=== PATIENT | female | born 1975 | race Caucasian/White ===

== ENCOUNTER 2016-09-28 06:15 | Day surgery (SDC) | payer MEDICAID ==
[2016-09-26 12:43] LABS: HEMATOCRIT 40.6 % (36.0-47.0); HEMOGLOBIN 13.2 g/dL (12.0-15.5); MEAN CORPUSCULAR HEMOGLOBIN 26.2 pg (27.0-33.4); MEAN CORPUSCULAR HGB CONC 32.7 g/dL (32.0-36.0); MEAN CORPUSCULAR VOLUME 80 fl (80-97); RED BLOOD COUNT 5.06 10^6/uL (3.72-5.28); RED CELL DISTRIBUTION WIDTH 13.6 % (11.5-14.0)
[2016-09-26 13:00] LABS: APPEARANCE,URINE SLIGHTLY-CLOUDY; BILIRUBIN,URINE NEGATIVE (NEGATIVE); GLUCOSE, URINE NEGATIVE (NEGATIVE); KETONES,URINE NEGATIVE (NEGATIVE); LEUKOCYTE ESTERASE,URINE TRACE (NEGATIVE); NITRITE,URINE NEGATIVE (NEGATIVE); PROTEIN,URINE NEGATIVE (NEGATIVE); URINE SPECIFIC GRAVITY 1.031; UROBILINOGEN,URINE NEGATIVE mg/dL (<2.0)
[2016-09-26 13:04] LABS: ANION GAP 14 (5-19); BLOOD UREA NITROGEN 12 mg/dL (7-20); CALCIUM 10.1 mg/dL (8.4-10.2); CARBON DIOXIDE 21 mmol/L (22-30); CHLORIDE 107 mmol/L (98-107); CREATININE RESULT 0.62 mg/dL (0.52-1.25); GLUCOSE 97 mg/dL (75-110); POTASSIUM 4.5 mmol/L (3.6-5.0); SODIUM 142.2 mmol/L (137-145)
[~2016-09-28 06:15] MED LIST: CEFAZOLIN 1 GM/D5W RTU 1 GM/50 ML RTUPB IV PRN; LACTATED RINGERS 1000 ML IV PRN; LIDOCAINE 0.5% INJ-PF (5 MG/ML) 50 ML SDV SUBCUT PRN; SCOPOLAMINE HYDROBROMIDE 1.5 MG PATCH.TD72 ONE
[2016-09-28] MEDS ORDERED: LIDOCAINE 1%/EPINEPHRINE INJ 20 ML VIAL ONE (07:16)
[2016-09-28] MEDS ORDERED: MIDAZOLAM 2 MG/2 ML INJ ONE (08:23)
[2016-09-28] MEDS ORDERED: FENTANYL CITRATE INJ/PF 100 MCG/2 ML AMPUL ONE (08:23)
[2016-09-28] MEDS ORDERED: KETAMINE HCL INJ 500 MG/10 ML VIAL ONE (08:24)
[2016-09-28] MEDS ORDERED: PROPOFOL INJ 200 MG/20 ML VIAL IV ONE (08:24)
[2016-09-28] MEDS ORDERED: FENTANYL CITRATE INJ/PF 100 MCG/2 ML AMPUL IV PRN ×3 (08:51)
[2016-09-28] MEDS ORDERED: MORPHINE SULFATE 10 MG/ML INJ IV PRN (08:51)
[2016-09-28] MEDS ORDERED: PROMETHAZINE HCL INJ 25 MG/1 ML VIAL IV PRN ×2 (08:51)
[2016-09-28] MEDS ORDERED: DIPHENHYDRAMINE HCL 50 MG/ML VIAL IV PRN (08:51)
[2016-09-28] MEDS ORDERED: MEPERIDINE HCL/PF INJ 25 MG/1 ML DISP.SYRIN IV PRN (08:51)
[2016-09-28] MEDS ORDERED: OXYCODONE-ACETAMINOPHEN 5-325 MG TABLET PO PRN ×3 (08:51→10:00)
[2016-09-28] MEDS ORDERED: MEPERIDINE HCL/PF INJ 25 MG/1 ML DISP.SYRIN ONE (09:22)
--- NOTE | 2016-09-28 09:39 | OPERATIVE REPORT E ---
Operative Report NAME: EVA PATEL : 1975 AGE: 41Y DATE OF SURGERY: 09/28/2016 ROOM: PREOPERATIVE DIAGNOSES: 1. Vulvar lesion. 2. Buttock lesion. POSTOPERATIVE DIAGNOSES: 1. Vulvar lesion. 2. Buttock lesion. PROCEDURE: Wide local excision of vulvar lesion and biopsy of left buttock. ESTIMATED BLOOD LOSS: 15 mL. COMPLICATIONS: None. ANESTHESIA: LMAC and local 1% lidocaine with epinephrine. SURGEON: HOOD NAVARRETE M.D. INDICATIONS FOR PROCEDURE: The patient had a symptomatic right vulvar lesion apparently measured approximately 3 x 2 x 2 cm upon first evaluation. Clinically, it was found in the subcu area. No lymphadenopathy was noted preop visits. The usual risks of bleeding, infection, anesthesia, and damage to organs and tissues were discussed and the patient understood. DESCRIPTION OF PROCEDURE: The patient was taken to the operating room and placed in the modified lithotomy position and adequate anesthesia ascertained. Surgical timeout performed, antibiotics given, EUA done. Normal abdominal contents and palpation. No adenopathy noted. A local injection at the area of concern was performed after Betadine was used for prep. Wide local incision of the area was performed uneventfully and handed off the operative field. *------* was encountered. Buttock area was excised as well. The layers were sewn in multilayered fashion using a 2-0 chromic catgut subcu in lower levels in multilayered fashion and subcu with 3-0 Vicryl. At completion of procedure, all sponge and needle counts were correct. The patient was taken to recovery room in stable condition. DICTATING PHYSICIAN: HOOD NAVARRETE M.D. [id number] PHY#: [id number] ID: [id number] JOB#: [id number] ACCT: [id number] cc:HOOD NAVARRETE M.D. >
[2016-09-28] MEDS ORDERED: ONDANSETRON HCL INJ/PF 4 MG/2 ML SDV ONE (09:50)
[2016-09-28] MEDS ORDERED: DEXAMETHASONE SOD PHOSPHATE INJ 4 MG/1 ML VIAL ONE (09:50)
[2016-09-28] MEDS ORDERED: PROMETHAZINE HCL INJ 25 MG/1 ML VIAL IM PRN (10:00)
[2016-09-28 12:11] VITALS: BP 117/67
[2016-09-28] MEDS ORDERED: IBUPROFEN 800 MG TABLET PO SCH (14:00)
== END 2016-09-28 11:10 | disposition home or self-care (01) ==
LOC: OROUT 06:15
PROVIDERS: ATTEND Specialist
PROC: 0UBMXZZ Excision of Vulva, External Approach (ICD-10-PCS; 2016-09-28)
PROC: 0HQ8XZZ Repair Buttock Skin, External Approach (ICD-10-PCS; 2016-09-28)
PROC: 0HB8XZX Excision of Buttock Skin, External Approach, Diagnostic (ICD-10-PCS; 2016-09-28)
PROC: 0HQAXZZ Repair Inguinal Skin, External Approach (ICD-10-PCS; principal; 2016-09-28 08:15)
DX: D28.0 Benign neoplasm of vulva (principal); D23.5 Other benign neoplasm of skin of trunk; Q85.00 Neurofibromatosis, unspecified; I49.9 Cardiac arrhythmia, unspecified; J45.909 Unspecified asthma, uncomplicated
CPT/HCPCS: 36415; 85027; 81025; 80048; 81001; 88305 ×2; 11426; 12044; J2250; J0690; J1100; J3010; J3490 ×3; J2175; J2405; J2704; 940

== ENCOUNTER 2016-11-18 23:31 | Emergency (ER) | payer MEDICAID ==
[2016-11-19] MEDS ORDERED: GLUCAGON,HUMAN RECOMB 1 MG INJ IV ONE (00:54)
--- NOTE | 2016-11-19 01:05 | ER Document Report ---
ED General - General Chief Complaint: Foreign Body Stated Complaint: BLOCKAGE IN THROAT Time Seen by Provider: 11/19/16 00:44 Notes: Patient is a 41-year-old female presents for complaint of food stuck in her soft expiratory gastric and 6 PM. She repeats and chicken. She has been unable to handle secretions or liquids since then. She did have a upper GI endoscopy in March. At that time she had scarring from reflux. This is performed by Dr. Kim. She was told that if she has recurrence of difficulty swallowing she may need ballooning of her esophagus. She denies any blood in her emesis.. She denies any difficulty breathing or aspiration. No fevers. No other complaints at this time. TRAVEL OUTSIDE OF THE [place] IN LAST 30 DAYS: No - Related Data Allergies/Adverse Reactions: milk [Milk] Allergy (Severe, Verified 09/26/16 11:09) Anaphylaxis bee stings Allergy (Uncoded 06/03/16 14:41) Past Medical History - Social History Smoking Status: Unknown if Ever Smoked Frequency of alcohol use: None Drug Abuse: None Family History: Reviewed & Not Pertinent - Past Medical History Cardiac Medical History: Denies: Hx Coronary Artery Disease, Hx Heart Attack, Hx Hypertension Pulmonary Medical History: Reports: Hx Asthma Denies: Hx Bronchitis, Hx COPD, Hx Pneumonia Neurological Medical History: Reports: Hx Migraine. Denies: Hx Cerebrovascular Accident, Hx Seizures Renal/ Medical History: Denies: Hx Peritoneal Dialysis GI Medical History: Reports: Hx Gastroesophageal Reflux Disease Musculoskeltal Medical History: Denies Hx Arthritis, Reports Hx Fibromyalgia Psychiatric Medical History: Reports: Hx Bipolar Disorder Past Surgical History: Reports: Hx Gynecologic Surgery - ovarian cyst removed, Hx Orthopedic Surgery - plate and screws in left pinky - Immunizations Hx Diphtheria, Pertussis, Tetanus Vaccination: Yes - <5 years Review of Systems - Review of Systems Notes: My Normal Review Basic REVIEW OF SYSTEMS: CONSTITUTIONAL : Denies fever, chills, or sweats. Denies recent illness. EENT: Denies eye, ear, throat, or mouth pain or symptoms. Denies nasal or sinus congestion. RESPIRATORY: Denies cough, cold, or chest congestion. Denies shortness of breath, difficulty breathing, or wheezing. GASTROINTESTINAL: Food impaction. MUSCULOSKELETAL: Denies neck or back pain or joint pain or swelling. SKIN: Denies rash or skin lesions. ALL OTHER SYSTEMS REVIEWED AND NEGATIVE. Physical Exam - Vital signs Vitals: Temp Pulse Resp BP Pulse Ox 99 F 85 16 133/89 H 97 11/19/16 00:16 11/19/16 00:16 11/19/16 00:16 11/19/16 00:16 11/19/16 00:16 - Notes Notes: General Appearance: Well nourished, alert, cooperative, no acute distress, moderate discomfort. Patient's spitting saliva into the back. Patient takes one small sip of water and immediately starts having difficulty swallowing and has to vomit. Vitals: reviewed, See vital signs table. Head: no swelling or tenderness to the head Eyes: PERRL, EOMI, Conjuctiva clear Mouth: No decreasd moisture Lungs: No wheezing, No rales, No rhonci, No accessory muscle use, good air exchange bilaterally. Heart: Normal rate, Regular rythm, No murmur, no rub Abdomen: Normal BS, soft, No rigidity, No abdominal tenderness, No guarding, no rebound, no abdominal masses, no organomegaly Skin: warm, dry, appropriate color, no rash Neuro: speech clear, oriented x 3, normal affect, responds appropriately to questions. Course - Re-evaluation Re-evalutation: 11/19/16 02:04 Patient still not able to pass the food bolus. I therefore tried to touch with GI physician. We do not junk call tonight. I did call [facility]. I spoke with Deborah Suarez who is the physician's residential living assistant covering for the GI coverage. [facility] called back and said that Dr. Charlton, the attending GI doctor, refuses to accept the patient because he said the patient is stable and that this is not emergent. - Vital Signs Vital signs: Temp Pulse Resp BP Pulse Ox 99 F 85 16 133/89 H 97 11/19/16 00:16 11/19/16 00:16 11/19/16 00:16 11/19/16 00:16 11/19/16 00:16 - Transfer of Care Notes: 11/19/16 02:26 Patient unfortunately was unable to pass the food impaction here. We did not have GI air export operations agent. I did eventually speak with Dr. Dickerson, GI physician at [facility], who kindly accepted the patient for transfer. Patient will be on ER to ER transfer to [facility]. I did talk to the patient about transfer options. I talked about a month's versus motor vehicle. She prefers to go by private vehicle. She says her son can drive her down there. She says she knows how to get to [facility]. Discharge - Discharge Clinical Impression: Food impaction of esophagus Qualifiers: Encounter type: initial encounter Qualified Code(s): T18.128A - Food in esophagus causing other injury, initial encounter Condition: Stable Disposition: [facility] Additional Instructions: Please go directly to the ER at [facility] in [place], [place]. Please present the paper work given to you to the ER front desk manager. You have been accepted by Dr. Dickerson for transfer. Please last puller and call 911 immediately if you have sudden severe chest pain or any vomiting of blood. Referrals: CASIE DAO MD [Primary Care Provider] - Follow up as needed
[2016-11-19] MEDS ORDERED: ONDANSETRON 4 MG TAB.RAPDIS PO ONE (01:51)
[2016-11-19 02:29] VITALS: BP 132/83
== END 2016-11-19 02:45 | disposition short-term general hospital (02) ==
LOC: ER 23:31
DX: T18.128A Food in esophagus causing other injury, initial encounter (principal); X58.XXXA Exposure to other specified factors, initial encounter; Y93.89 Activity, other specified; K21.9 Gastro-esophageal reflux disease without esophagitis; J45.909 Unspecified asthma, uncomplicated; Z91.011 Allergy to milk products; Z91.030 Bee allergy status
CPT/HCPCS: 99283; 96374; S0119; J1610

== ENCOUNTER 2016-11-19 08:44 | Emergency (ER) | payer MEDICAID ==
--- NOTE | 2016-11-19 08:54 | ER Document Report ---
ED Foreign Body - General Chief Complaint: Swallowed Foreign Body Stated Complaint: NAUSEA Time Seen by Provider: 11/19/16 08:53 Mode of Arrival: Ambulatory Information source: Patient Notes: 41-year-old female has persistent foreign body in her esophagus and is having to spit out her saliva and unable to swallow liquids. She is a history of stricture. She left the emergency department last night at 3:30 and was supposed to present to the blow off worker at [facility]. The patient was so tired she went home to sleep. She return to the emergency room today having seen Dr. kim in the past wanting this to be taken care of in [place] so she wouldn't have to drive to [facility]. I called Dr. Kim who is on-call for the emergency department and he spoke with Dr. Robison who will take care of this esophageal foreign body. TRAVEL OUTSIDE OF THE [place] IN LAST 30 DAYS: No - Related Data Allergies/Adverse Reactions: milk [Milk] Allergy (Severe, Verified 11/19/16 08:52) Anaphylaxis bee stings Allergy (Uncoded 11/19/16 08:52) Past Medical History - General Information source: Patient - Social History Smoking Status: Unknown if Ever Smoked Frequency of alcohol use: None Drug Abuse: None Lives with: Family Family History: Reviewed & Not Pertinent Pulmonary Medical History: Reports: Hx Asthma Neurological Medical History: Reports: Hx Migraine Renal/ Medical History: Denies: Hx Peritoneal Dialysis GI Medical History: Reports: Hx Gastroesophageal Reflux Disease, Other - Esophageal stricture Musculoskeltal Medical History: Reports Hx Fibromyalgia Psychiatric Medical History: Reports: Hx Bipolar Disorder Past Surgical History: Reports: Hx Gynecologic Surgery - ovarian cyst removed, Hx Orthopedic Surgery - plate and screws in left pinky - Immunizations Hx Diphtheria, Pertussis, Tetanus Vaccination: Yes - <5 years Review of Systems - Review of Systems Constitutional: No symptoms reported EENT: No symptoms reported Cardiovascular: No symptoms reported Respiratory: No symptoms reported Gastrointestinal: See HPI Genitourinary: No symptoms reported Female Genitourinary: No symptoms reported Musculoskeletal: No symptoms reported Skin: No symptoms reported Hematologic/Lymphatic: No symptoms reported Neurological/Psychological: No symptoms reported Physical Exam - Vital signs Vitals: Temp Pulse Resp BP Pulse Ox 98.9 F 73 18 111/67 98 11/19/16 08:51 11/19/16 08:51 11/19/16 08:51 11/19/16 08:51 11/19/16 08:51 Interpretation: Normal - General General appearance: Appears well, Alert In distress: None - HEENT Head: Normocephalic, Atraumatic Eyes: Normal Pupils: PERRL Pharynx: Normal Neck: Supple. No: Lymphadenopathy - Respiratory Respiratory status: No respiratory distress Chest status: Nontender Breath sounds: Normal Chest palpation: Normal - Cardiovascular Rhythm: Regular Heart sounds: Normal auscultation Murmur: No - Abdominal Inspection: Normal Distension: No distension Bowel sounds: Normal Tenderness: Nontender. No: Tender Organomegaly: No organomegaly - Back Back: Normal, Nontender - Extremities General upper extremity: Normal inspection, Nontender, Normal color, Normal ROM , Normal temperature General lower extremity: Normal inspection, Nontender, Normal color, Normal ROM , Normal temperature, Normal weight bearing. No: Judy's sign - Neurological Neuro grossly intact: Yes Cognition: Normal Orientation: AAOx4 [place] Coma Scale Eye Opening: Spontaneous Magan Coma Scale Verbal: Oriented Magan Coma Scale Motor: Obeys Commands [place] Coma Scale Total: 15 Speech: Normal Motor strength normal: LUE, RUE, LLE, RLE Sensory: Normal - Psychological Associated symptoms: Normal affect, Normal mood - Skin Skin Temperature: Warm Skin Moisture: Dry Skin Color: Normal Skin irregularity: negative: Rash Course - Vital Signs Vital signs: Temp Pulse Resp BP Pulse Ox 98.2 F 74 16 111/51 L 100 11/19/16 13:30 11/19/16 13:30 11/19/16 13:30 11/19/16 13:30 11/19/16 13:30 Discharge - Discharge Forms: Discharge POC-Adult Referrals: AMY AYALA MD [ACTIVE STAFF] - Follow up as needed
[2016-11-19] MEDS ORDERED: NORMAL SALINE 1000 ML 1,000 ML IV ONE ×2 (09:10→10:55)
[2016-11-19] MEDS ORDERED: ONDANSETRON HCL INJ/PF 4 MG/2 ML SDV IV ONE (09:11)
[2016-11-19] MEDS ORDERED: PROCHLORPERAZINE EDISYLATE INJ 10 MG/2 ML VIAL IV ONE (09:21)
[2016-11-19] MEDS ORDERED: DIPHENHYDRAMINE HCL 50 MG/ML VIAL IV ONE (09:21)
[2016-11-19] MEDS ORDERED: ONDANSETRON HCL INJ/PF 4 MG/2 ML SDV ONE (12:02)
[2016-11-19] MEDS ORDERED: NALOXONE HCL INJ/PF 0.4 MG/1 ML SDV ONE (12:02)
[2016-11-19] MEDS ORDERED: DIPHENHYDRAMINE HCL 50 MG/ML VIAL ONE (12:02)
[2016-11-19] MEDS ORDERED: FENTANYL CITRATE INJ/PF 100 MCG/2 ML AMPUL ONE (12:03)
[2016-11-19] MEDS ORDERED: FLUMAZENIL INJ 0.5 MG/5 ML VIAL IV ONE (12:03)
[2016-11-19] MEDS ORDERED: GLUCAGON,HUMAN RECOMB 1 MG INJ ONE (12:04)
[2016-11-19] MEDS ORDERED: EPINEPHRINE INJ 1 MG/10 ML DISP.SYRIN ONE (12:04)
[2016-11-19] MEDS: MIDAZOLAM 2 MG/2 ML INJ ONE ×2 (12:20→12:24)
[2016-11-19 13:33] VITALS: BP 111/51
--- NOTE | 2016-11-19 14:05 | Operative Report ---
Operative Report DATE OF SURGERY: 11/19/16 Operative Report: The risks benefits and alternatives of the procedure explained to the patient in detail and informed consent is obtained . A GIF Olympus video scope was inserted into the patient's mouth and hypopharynx, the esophagus is identified intubated and insufflated, the scope was then advanced through the esophagus stomach and duodenum, retroflexion maneuver is done ,the esophagus stomach and first and second portions of the duodenum examined PREOPERATIVE DIAGNOSIS: Food bolus impaction. Dysphagia POSTOPERATIVE DIAGNOSIS: Eosinophilic esophagitis, patient has rings and furrows biopsies obtained. Gastritis status post biopsy rule out Helicobacter pylori. Food bolus removal OPERATION: EGD with foreign body removal. EGD with biopsy SURGEON: AMY AYALA ANESTHESIA: Moderate Sedation - 4 mg of Versed, 100 g of fentanyl. Conscious sedation monitoring time 30 minutes. TISSUE REMOVED OR ALTERED: Esophageal mucosal specimens obtained. Gastric mucosal specimens obtained COMPLICATIONS: None. ESTIMATED BLOOD LOSS: none. INTRAOPERATIVE FINDINGS: Food impaction in the distal esophagus. Esophageal rings and furrows. Gastritis PROCEDURE: Patient tolerated the procedure well. No immediate postprocedure complications are noted. Patient is discharged in good condition. Discharge date 11/19/2016. Discharge diet: Regular. Discharge activity: Regular. 2-3 week follow-up to discuss findings. Patient is instructed to call the office or proceed to the emergency room should there be any further problems or questions. We'll await on biopsies.
== END 2016-11-19 12:03 | disposition other institution (70) ==
LOC: ER 08:44
DX: T18.128A Food in esophagus causing other injury, initial encounter (principal); X58.XXXA Exposure to other specified factors, initial encounter; K21.9 Gastro-esophageal reflux disease without esophagitis; K22.2 Esophageal obstruction; Z91.011 Allergy to milk products; Z91.030 Bee allergy status
CPT/HCPCS: 99284; 96361; 96374; 96375; 43239; 43247; 88342 ×2; 88305 ×2; J2250; J1200; J3010; J0780; J2405; J7030; J0171; J1610; J2310; J3490

== ENCOUNTER → 2017-01-22 | Outpatient (CLI) | payer MEDICAID ==
--- NOTE | 2017-01-22 18:09 | RADIOLOGY REPORT (SQ) ---
EXAM DESCRIPTION: BOSTON SWALLOW COMPLETED DATE/TIME: 01/22/2017 8:32 am REASON FOR STUDY: DYSPHAGIA R13.10 DYSPHAGIA, UNSPECIFIED COMPARISON None. TECHNIQUE: Videofluoroscopic swallowing examination was performed in conjunction with speech patholo gy. Videofluoroscopic imaging was obtained and reviewed and these are the findings: RADIATION DOSE: 55 seconds of fluoroscopy was used. 1 images saved to PACS. LIMITATIONS: None FINDINGS: The patient was brought into the fluoro room and placed upright on a modified barium swall ow chair. The patient was then given multiple consistencies mixed with barium to swallow under live fluoroscopic video guidance. According to the Speech Pathologist there was no penetration or aspirat ion. IMPRESSION: NO EVIDENCE OF PENETRATION OR ASPIRATION.PLEASE SEE SPEECH PATHOLOGIST REPORT FOR OTHER FINDINGS AND RECOMMENDATIONS. COMMENT: Quality ID [id number]: Final reports for procedures using fluoroscopy that document radiation exp osure indices, or exposure time and number of fluorographic images (if radiation exposure indices are not available) TECHNICAL DOCUMENTATION: JOB ID: [id number] [employer]- All Rights Reserved
--- NOTE | 2017-01-22 18:21 | ST Modified Barium Swallow ---
Recommendation - Recommendations Recommendations: 1) DIET: mechanical soft solids with chopped tender, moist ( gravy added) meats and thin liquids. No foods with skins, nuts, crunchy crumbly textures. 2) ST in agreement with continued GI follow-up as pt reports recent event where chicken was "dislodged from esophagus.". 3) Alternate solids and liquids. SUMMARY: Pt presents with a WNL oral and pharyngeal swallow; no penetration or aspiration observed. No oral or pharyngeal residuals seen during MBSS. Pt provided with barium tablet as pt reported difficulty with medication. Barium pill observed to move from oral to pharyngeal phase without difficulty, RA reports WNL for esophageal phase. Pt reported globus sensation throughout evaluation, no pharyngeal or esophageal residuals observed. Alternating solids and liquids recommended as pt reports aides in reducing "sticking" sensation. Medical Diagnoses - Medical Diagnoses Medical Diagnosis Description & ICD-10 Code(s): r13.10 Other Medical Diagnoses/Co-Morbidities: gullbladder issues- per pt - ICD-10 Tx Diagnosis Coding (1) Dysphagia, unspecified ICD-10 Code(s): R13.10 - DYSPHAGIA, UNSPECIFIED ST Modified Barium Swallow - General Date: 01/22/17 Referring Physician: Dr Humphreys Risks/Precautions: None Date of Onset: 01/22/09 Reason for Referral: dysphagia - History History obtained from: Patient -: Medical - Pt reports referred by neurologist due to recent hospital admission at [facility]. Pt reports went the hospital due to food lodged. Pt states hospital referred her to [facility] for GI however pt states she did not go due to work commitments. Pt states began having issues breathing at work and was readmitted to [facility] hospital. There she states she had EGD completed and had "chicken dislodged from the esophagus". [facility] surgical notes reviewed by ST and state "poss EOE, gastritis, and foreign body removal." Pt reports her symptoms are coughing and choking with PO intake, globus sensation in mid to lower neck, difficulty with pills-pt states now taking liquid form, difficulty breathing, need to make herself "sick" in order to reduce sensation of "sticking". Pt reports unable to identify pattern of foods which cause difficulty however notes that "stretching and moving help". Pt states onset of symptoms began approximately 8 years ago and have become more frequent. Pt denies history of bronchitis or PNA. Medications: depakote, nexium, steriod inhaler, magdaleno, flonaze, patch for nausea-per pt Allergies: "milk" reported - Functional Status Prior Functional Status: INDEPENDENT: feeding Current Functional Limitations: feeding - Subjective Patient/caregiver goal(s): safe swallow, r/o aspiration Cognitive-Linguistic Function: WNL Speech Intelligibility: WNL Current Nutritional Means: PO Current PO diet: Regular Current symptoms: Coughing, c/o Globus sensation Pain: 0/5 - Objective Assessment: Upright, Left Lateral - Food Trials Used Food trials used: Thin liquids, Pureed, Regular The patient: Was Able to Self Feed - Oral-Motor Skills Dentition: Full Velo-pharyngeal function: Unremarkable Laryngeal Function: Volitional Cough, Volitional Swallow - Assessment Oral prep: Normal Labial closure: Adequate Leakage: None Mastication: Adequate Lingual Movement: Normal Oral stage: Normal for this Procedure - Pharyngeal Stage Initiation of Pharyngeal Stage Reflex: Normal Decreased laryngeal elevation: No Reduced Velopharyngeal Closure: no Reduced pressure generation: No reduced tongue-based retraction: No Pre-swallow pooling in valleculae: None Pre-Swallow pooling in pyriforms: None Reduced Thyro-Hyoid approximation: No Reduced epiglottic excursion: No Reduced pharyngeal peristalsis/contraction: No Post-swallow residulas vallecular: None Post-Swallow residuals in pyriforms: None Reduced Cricopharyngeal opening: No - Fall Risk Assessment Medications/Conditions that increase fall risks include: Antidepressants, sedatives, anti-arrhythmic, diuretic, benzodiazipenes, neuroleptics. BP regulation problems, cardiac problems, balance or gait deficits, neurological problems. Is patient considered at risk for falls: no Fall Risk Actions Taken: No action needed - Behavioral Observations During evaluation process patient: was pleasant, was cooperative, able to answer questions, provided medical history - Treatment / Educational Needs: Treatment/Education Needs: Treatment consisted of patient education on the role of the Speech Pathologist. Patient's plan of care and golas were communicated as well as scheduling and attendance policies. Recommendations for initial home program were shared. Patient demonstrated understanding and verbalized agreement. Initial home program recommendations: Pt provided with written and verbal education on recommendations and reflux precautions. - Impression/Summary Laryngeal Penetration: No Tracheal Aspiration: no Patient presents with: Normal swallow at eval - safe and effective swallow observed during MBSS Risk of Aspiration: Minimal - Recommendations NPO: no Solid diet recommendations: Mechanical Soft, Chopped Meat Liquid Diet Modification: Thin Pt/Family education and followup with MD: Yes Dysphagia therapy with SANDBLASTER GLASS: no Recommended techniques: Fully Upright During Meal, Small Bites and Sips, Alternate Bites/Sips Supervision: Distant Information, Precautions and Recommendations: Patient (Written), Patient (Verbal ) - Time Total Time: 30 - Plan of Care Strategies to optimize patient understanding include:: ongoing assessment of educational needs, implementation of educational strategies, and re-education. - - -: Thank you for the opportunity to work with this patient and his/her family. Should you have any questions about this patient's plan or progress, I can be reached at [phone]. Charge G Code? - - -: No
== END ==
LOC: RAD 07:42
PROVIDERS: ATTEND Specialist
DX: R13.10 Dysphagia, unspecified (principal)
CPT/HCPCS: 74230

== ENCOUNTER 2017-10-22 21:41 | Emergency (ER) | payer MEDICAID ==
[2017-10-22] MEDS ORDERED: NORMAL SALINE 1000 ML 1,000 ML IV ONE (22:50)
[2017-10-22] MEDS ORDERED: ONDANSETRON HCL INJ/PF 4 MG/2 ML SDV IV ONE (23:23)
[2017-10-22 23:30] LABS: ABSOLUTE EOSINOPHILS # (AUTO) 0.3 10^3/uL (0.0-0.6); ABSOLUTE MONOCYTES (AUTO) 0.6 10^3/uL (0.1-1.4); ABSOLUTE NEUT (AUTO) 12.4 10^3/uL (1.7-8.2); BASOPHILS % (AUTO) 0.1 % (0-2); HEMOGLOBIN 13.3 g/dL (12.0-15.5); LYMPHOCYTES % (AUTO) 7.3 % (13-45); MEAN CORPUSCULAR HEMOGLOBIN 25.6 pg (27.0-33.4); MEAN CORPUSCULAR HGB CONC 33.2 g/dL (32.0-36.0); MEAN CORPUSCULAR VOLUME 77 fl (80-97); PLATELET COUNT 270 10^3/uL (150-450); RED BLOOD COUNT 5.18 10^6/uL (3.72-5.28); RED CELL DISTRIBUTION WIDTH 15.3 % (11.5-14.0); SEGMENTED NEUTROPHILS % (AUTO) 86.6 % (42-78); TOTAL CELLS COUNTED % (AUTO) 100 %; WHITE BLOOD COUNT 14.3 10^3/uL (4.0-10.5)
[2017-10-22 23:46] LABS: ALANINE AMINOTRANSFERASE 13 U/L (9-52); ALBUMIN 4.3 g/dL (3.5-5.0); ALKALINE PHOSPHATASE 68 U/L (38-126); ANION GAP 14 (5-19); ASPARTATE AMINO TRANSFERASE 25 U/L (14-36); BILIRUBIN,DIRECT 0.3 mg/dL (0.0-0.4); BILIRUBIN,TOTAL 0.9 mg/dL (0.2-1.3); BLOOD UREA NITROGEN 17 mg/dL (7-20); CALCIUM 9.4 mg/dL (8.4-10.2); CARBON DIOXIDE 19 mmol/L (22-30); CHLORIDE 109 mmol/L (98-107); GLUCOSE 127 mg/dL (75-110); POTASSIUM 4.2 mmol/L (3.6-5.0); SODIUM 142.3 mmol/L (137-145); TOTAL PROTEIN 7.1 g/dL (6.3-8.2)
[2017-10-22] MEDS ORDERED: FENTANYL CITRATE INJ/PF 100 MCG/2 ML AMPUL IV ONE (23:55)
[2017-10-23 00:57] LABS: APPEARANCE,URINE SLIGHTLY-CLOUDY; BILIRUBIN,URINE NEGATIVE (NEGATIVE); COLOR,URINE YELLOW; GLUCOSE, URINE NEGATIVE (NEGATIVE); KETONES,URINE TRACE mg/dL (NEGATIVE); LEUKOCYTE ESTERASE,URINE NEGATIVE (NEGATIVE); NITRITE,URINE NEGATIVE (NEGATIVE); PROTEIN,URINE 30 mg/dL (NEGATIVE); URINE SPECIFIC GRAVITY 1.024; UROBILINOGEN,URINE NEGATIVE mg/dL (<2.0)
--- NOTE | 2017-10-23 02:00 | ER Document Report ---
ED General - General Chief Complaint: Vomiting Stated Complaint: NAUSEA/VOMITING Time Seen by Provider: 10/22/17 23:38 Notes: Patient is is a 42-year-old female presents with complaint of right upper quadrant abdominal pain and some nausea and vomiting and some diarrhea. It has been ongoing since this morning. No blood in emesis. No blood in stool. Said the pain is crampy her abdomen and seems to be improved when she moves around or changes positions. No fevers. She does have history of eosinophilic esophagitis. She does take medications for this. No other previous history of abdominal surgeries. No other complaints at this time. No dysuria or abnormal vaginal discharge. TRAVEL OUTSIDE OF THE [place] IN LAST 30 DAYS: No - Related Data Allergies/Adverse Reactions: milk [Milk] Allergy (Severe, Verified 11/19/16 08:52) Anaphylaxis bee stings Allergy (Uncoded 11/19/16 08:52) Past Medical History - Social History Smoking Status: Never Smoker Chew tobacco use (# tins/day): No Frequency of alcohol use: None Drug Abuse: None Family History: Reviewed & Not Pertinent Patient has suicidal ideation: No Patient has homicidal ideation: No - Past Medical History Cardiac Medical History: Denies: Hx Coronary Artery Disease, Hx Heart Attack, Hx Hypertension Pulmonary Medical History: Reports: Hx Asthma Denies: Hx Bronchitis, Hx COPD, Hx Pneumonia Neurological Medical History: Reports: Hx Migraine. Denies: Hx Cerebrovascular Accident, Hx Seizures Renal/ Medical History: Denies: Hx Peritoneal Dialysis GI Medical History: Reports: Hx Gastroesophageal Reflux Disease Musculoskeltal Medical History: Denies Hx Arthritis, Reports Hx Fibromyalgia Psychiatric Medical History: Reports: Hx Bipolar Disorder Past Surgical History: Reports: Hx Gynecologic Surgery - ovarian cyst removed, Hx Orthopedic Surgery - plate and screws in left pinky. Denies: Hx Hysterectomy - Immunizations Hx Diphtheria, Pertussis, Tetanus Vaccination: Yes - <5 years Review of Systems - Review of Systems Notes: My Normal Review Basic REVIEW OF SYSTEMS: CONSTITUTIONAL : Denies fever, chills, or sweats. Denies recent illness. EENT: Denies eye, ear, throat, or mouth pain or symptoms. Denies nasal or sinus congestion. CARDIOVASCULAR: Denies chest pain. RESPIRATORY: Denies cough, cold, or chest congestion. Denies shortness of breath, difficulty breathing, or wheezing. GASTROINTESTINAL: Abdominal pain. Vomiting. Diarrhea. GENITOURINARY: Denies difficulty urinating, painful urination, burning, frequency, or blood in urine. MUSCULOSKELETAL: Denies neck or back pain or joint pain or swelling. SKIN: Denies rash or skin lesions. NEUROLOGICAL: Denies altered mental status or loss of consciousness. Denies headache. Denies weakness or paralysis or loss of use of either side. Denies problems with gait or speech. Denies sensory or motor loss. ALL OTHER SYSTEMS REVIEWED AND NEGATIVE. Physical Exam - Vital signs Vitals: Temp Pulse Resp BP Pulse Ox 98.5 F 100 18 133/72 H 97 10/22/17 22:01 10/22/17 22:01 10/22/17 22:01 10/22/17 22:01 10/22/17 22:01 - Notes Notes: General Appearance: Well nourished, alert, cooperative, no acute distress, moderate obvious discomfort. Vitals: reviewed, See vital signs table. Head: no swelling or tenderness to the head Eyes: PERRL, EOMI, Conjuctiva clear Mouth: No decreasd moisture Lungs: No wheezing, No rales, No rhonci, No accessory muscle use, good air exchange bilaterally. Heart: Normal rate, Regular rythm, No murmur, no rub Abdomen: Normal BS, soft, No rigidity, mild to moderate right sided abdominal tenderness to palpation, No guarding, no rebound, no abdominal masses, no organomegaly Extremities: strength 5/5 in all extremities, good pulses in all extremities, no swelling or tenderness in the extremities, no edema. Skin: warm, dry, appropriate color, no rash Neuro: speech clear, oriented x 3, normal affect, responds appropriately to questions. Course - Re-evaluation Re-evalutation: 10/23/17 02:23 Patient's white blood cell count came back at 14.3. Liver enzymes are normal and her ultrasound of gallbladder is negative. I did recheck her abdomen she still has pain palpation over the right side of her abdomen. I will obtain a CT scan to look for evidence of appendicitis. I discussed this with the patient and she is agreeable to it. Dictation of this chart was performed using voice recognition software; therefore, there may be some unintended grammatical errors. 10/23/17 06:34 The scan show no evidence of appendicitis. It does show that she has some inflammation around the transverse colon consistent with a focal colitis. She has no history inflammatory bowel disease and no history of previous inflammation in the colon. Forward treat her for infectious colitis is more likely. I did place her on Cipro. Encourage her to take nausea medicine and pain medicine as needed. I encouraged her follow-up with her doctor her GI doctor and 1-2 days. I encouraged her return to ER immediately if she has recurrent vomiting, fevers, worsening pain, bloody stools, or she feels unwell. Patient agrees with plan will be discharged home. Dictation of this chart was performed using voice recognition software; therefore, there may be some unintended grammatical errors. - Vital Signs Vital signs: Temp Pulse Resp BP Pulse Ox 98.9 F 82 18 121/65 98 10/23/17 04:07 10/23/17 04:07 10/23/17 04:07 10/23/17 04:07 10/23/17 04:07 - Laboratory Result Diagrams: 10/22/17 23:05 10/22/17 23:05 Laboratory results interpreted by me: 10/22/17 10/22/17 10/23/17 23:05 23:05 00:25 WBC 14.3 H MCV 77 L MCH 25.6 L RDW 15.3 H Seg Neutrophils % 86.6 H Lymphocytes % 7.3 L Absolute Neutrophils 12.4 H Chloride 109 H Carbon Dioxide 19 L Glucose 127 H Urine Protein 30 H Urine Ketones TRACE H Urine Blood SMALL H Discharge - Discharge Clinical Impression: Abdominal pain Qualifiers: Abdominal location: right upper quadrant Qualified Code(s): R10.11 - Right upper quadrant pain Vomiting Qualifiers: Vomiting type: unspecified Vomiting Intractability: non-intractable Nausea presence: with nausea Qualified Code(s): R11.2 - Nausea with vomiting, unspecified Diarrhea Qualifiers: Diarrhea type: unspecified type Qualified Code(s): R19.7 - Diarrhea, unspecified Condition: Good Disposition: HOME, SELF-CARE Additional Instructions: Your CT scan shows evidence of colitis. Please take the antibiotics and pain and nausea medicine as prescribed. Please return to the ER if you have worsening pain, fevers, trouble vomiting, or feels unwell. Please call your GI doctor to make a close follow-up appointment or follow-up with your primary care doctor within the next 2-3 days. You have been prescribed an antibiotic that is in the class of antibiotics called fluoroquinolones. On rare occasions these can cause weakness of the tendons. You should therefore avoid any type of heavy lifting or sporting activities while you are on this antibiotic and up to 1 week after stopping it. Prescriptions: Ciprofloxacin HCl [Cipro 500 mg Tablet] 500 mg PO BID #14 tablet Hydrocodone/Acetaminophen [[place] 5-325 mg Tablet] 1 tab PO Q4 PRN #8 tablet PRN Reason: For Breakthrough Pain Ondansetron [Zofran Odt 4 mg Tablet] 1 tab PO Q4H PRN #15 tab.rapdis PRN Reason: For Nausea/Vomiting Referrals: ANNALISA CHEEMA MD [Primary Care Provider] - Follow up as needed
--- NOTE | 2017-10-23 02:02 | RADIOLOGY REPORT (SQ) ---
EXAM DESCRIPTION: U/S ABDOMEN LTD W/DOPPLER CLINICAL HISTORY: RUQ abdominal pain COMPARISON: 11/22/2015 TECHNIQUE: Real-time sonographic images of the right upper abdomen were obtained using a curved multi hertz transducer. FINDINGS: Pancreas: The visualized portions of the pancreas are unremarkable. Vascular: The visualized portions of the aorta and IVC are unremarkable. Liver: The liver has normal contour and echogenicity. Hepatopedal flow in the portal vein. The common bile duct measures 0.5 cm. Gallbladder: The gallbladder has a normal appearance. No gallstones identified. No wall thickening or pericholecystic fluid. Right Kidney: The right kidney measures 10.4 cm in length. No hydronephrosis, solid renal mass, or shadowing calculi. IMPRESSION: 1. No sonographic abnormality identified in the right upper abdomen. No gallstones.
[2017-10-23 04:09] VITALS: BP 121/65
--- NOTE | 2017-10-23 04:11 | RADIOLOGY REPORT (SQ) ---
EXAM DESCRIPTION: CT ABDOMEN AND PELVIS WITH CONTRAST CLINICAL HISTORY: right sided abdominal pain COMPARISON: 10/06/2011 TECHNIQUE: CT of the abdomen and pelvis performed following IV administration of 97 mL of Isovue-370. DLP: 1888 mGycm FINDINGS: Lung Bases: The visualized lung bases are clear. Bones: No destructive bone lesions identified. Abdomen: Liver: The liver has normal size and density. No intrahepatic mass or biliary dilatation. Gallbladder: No calcified gallstones. Spleen, Pancreas, and Adrenal Glands: The spleen, pancreas, and adrenal glands are unremarkable. Kidneys: The kidneys have normal size and contour without evidence of solid mass or hydronephrosis. Vasculature: The aorta and IVC have normal caliber and position. The portal vein is patent. The proximal visceral and renal arteries are patent. Stomach: The stomach and duodenum have normal course. Other: No free intraperitoneal air. No free fluid or lymphadenopathy. Pelvis: Bladder: Urinary bladder is unremarkable. Bowel: Wall thickening of the transverse colon with mild adjacent fat stranding. Appendix: Normal appendix. Pelvis: Uterus is not enlarged. IMPRESSION: 1. Wall thickening of the transverse colon. These findings could be seen with colitis of inflammatory or infectious etiology. Normal appendix. This exam was performed according to our departmental dose-optimization program, which includes automated exposure control, adjustment of the mA and/or kV according to patient size and/or use of iterative reconstruction technique.
[2017-10-23] MEDS ORDERED: CIPROFLOXACIN HCL 500 MG TABLET PO ONE (04:34)
== END 2017-10-23 04:56 | disposition home or self-care (01) ==
LOC: ER 21:41
DX: R10.11 Right upper quadrant pain (principal); R11.2 Nausea with vomiting, unspecified; R19.7 Diarrhea, unspecified; J45.909 Unspecified asthma, uncomplicated
CPT/HCPCS: 99284; 96361; 96374; 96375; 36415; 85025; 80053; 81001; 76705; 93976; 74177; J3490; J3010; J2405; J7030

== ENCOUNTER 2017-11-12 19:47 | Emergency (ER) | payer MEDICAID ==
--- NOTE | 2017-11-12 20:24 | ER Document Report ---
ED Foreign Body - General Mode of Arrival: Ambulatory Information source: Patient TRAVEL OUTSIDE OF THE [place] IN LAST 30 DAYS: No <THOR CASAS - Last Filed: 11/12/17 20:59> <RONALD DAVIDSON - Last Filed: 11/12/17 22:48> - General Chief Complaint: Foreign Body Stated Complaint: FOOD LODGED IN THROAT Time Seen by Provider: 11/12/17 20:13 Notes: 42 y.o female with a PMHx of asthma, chronic migraines, GERD, bipolar disorder and eosinophilic esophagitis with some scaring presents to the ED with a food bolus in her throat since 1644 this evening. Pt states that she was eating some roast beef and feels as if she has food in the proximal end of her throat. One year ago, Nov 18 2016, she had a food bolus in her distal esophagus that was removed by EGD on Nov 19 2016. Pt followed up with Dr. Bowen who prescribes her Nexium 4mg twice a day and states that she still takes the Nexium. Pt reports that she hasn't seen Dr. Bowen since the follow up about a year ago. Pt wears a scopolamine patch for chronic migraines. (THOR CASAS) - Related Data Allergies/Adverse Reactions: milk [Milk] Allergy (Severe, Verified 11/19/16 08:52) Anaphylaxis bee stings Allergy (Uncoded 11/19/16 08:52) Past Medical History - General Information source: Patient - Social History Smoking Status: Unknown if Ever Smoked Family History: Reviewed & Not Pertinent - Past Medical History Cardiac Medical History: Denies: Hx Coronary Artery Disease, Hx Heart Attack, Hx Hypertension Pulmonary Medical History: Reports: Hx Asthma Denies: Hx Bronchitis, Hx COPD, Hx Pneumonia Neurological Medical History: Reports: Hx Migraine. Denies: Hx Cerebrovascular Accident, Hx Seizures Renal/ Medical History: Denies: Hx Peritoneal Dialysis GI Medical History: Reports: Hx Gastroesophageal Reflux Disease Musculoskeltal Medical History: Denies Hx Arthritis, Reports Hx Fibromyalgia Psychiatric Medical History: Reports: Hx Bipolar Disorder Past Surgical History: Reports: Hx Gynecologic Surgery - ovarian cyst removed, Hx Orthopedic Surgery - plate and screws in left pinky. Denies: Hx Hysterectomy - Immunizations Hx Diphtheria, Pertussis, Tetanus Vaccination: Yes - <5 years <THOR CASAS - Last Filed: 11/12/17 20:59> Review of Systems - Review of Systems Constitutional: No symptoms reported EENT: See HPI, Other - Food bolus in throat Cardiovascular: No symptoms reported Respiratory: No symptoms reported Gastrointestinal: No symptoms reported Genitourinary: No symptoms reported Female Genitourinary: No symptoms reported Musculoskeletal: No symptoms reported Skin: No symptoms reported Hematologic/Lymphatic: No symptoms reported Neurological/Psychological: No symptoms reported -: Yes All other systems reviewed and negative <THOR CASAS - Last Filed: 11/12/17 20:59> Physical Exam <THOR CASAS - Last Filed: 11/12/17 20:59> <RONALD DAVIDSON - Last Filed: 11/12/17 22:48> - Vital signs Vitals: Resp BP Pulse Ox 14 131/90 H 100 11/12/17 20:19 11/12/17 20:19 11/12/17 20:19 - Notes Notes: Physical Exam: General: Alert, anxious. HEENT: Normocephalic. Atraumatic. PERRL. Extraocular movements intact. Oropharynx clear. Unable to swallow and spitting up saliva. Neck: Supple. Non-tender. Respiratory: No respiratory distress. Clear and equal breath sounds bilaterally. Cardiovascular: Regular rate and rhythm. Abdominal: Normal Inspection. Non-tender. No distension. Normal Bowel Sounds. Back: Non-tender. No deformity or step off. Extremities: Moves all four extremities. Upper extremities: Normal inspection. Normal ROM. Lower extremities: Normal inspection. No edema. Normal ROM. Neurological: Normal cognition. AAOx4. Normal speech. (THOR CASAS) Course <THOR CASAS - Last Filed: 11/12/17 20:59> - Consults Dr. Bowen Time consulted: 20:30 Consulted provider: katty Bowen indicated he would make some calls and arrangements to do EGD on his patient. <RONALD DAVIDSON - Last Filed: 11/12/17 22:48> - Re-evaluation Re-evalutation: 11/12/17 22:09 The endoscopy team is here with the equipment and the plan is for a bedside EGD when Dr. Bowen gets here. 11/12/17 22:33 Bedside EGD was done by Dr. Bowen, he reports the mid-esophageal food bolus was pushed through without difficulty. (RONALD DAVIDSON) - Vital Signs Vital signs: Temp Pulse Resp BP Pulse Ox 95 16 110/70 100 11/12/17 22:45 11/12/17 22:45 11/12/17 22:45 11/12/17 22:45 Discharge <THOR CASAS - Last Filed: 11/12/17 20:59> <RONALD DAVIDSON - Last Filed: 11/12/17 22:48> - Discharge Clinical Impression: Eosinophilic esophagitis Impacted esophageal foreign body Qualifiers: Encounter type: initial encounter Qualified Code(s): T18.108A - Unspecified foreign body in esophagus causing other injury, initial encounter Condition: Stable Disposition: HOME, SELF-CARE Additional Instructions: Dr. Bowen will call you with an office appointment time for follow-up. RETURN TO THE EMERGENCY ROOM IF ANY NEW OR WORSENING SYMPTOMS. Referrals: ELADIO BOWEN MD [ACTIVE STAFF] - Follow up as needed ANNALISA CHEEMA MD [Primary Care Provider] - Follow up as needed Scribe Attestation: 11/12/17 20:59 I personally performed the services described in the documentation, reviewed and edited the documentation which was dictated to the scribe in my presence, and it accurately records my words and actions. (RONALD DAVIDSON) Scribe Documentation - Scribe Written by Irene:: Irene Rangel 202411/12/2017 acting as scribe for :: Hollie <THOR CASAS - Last Filed: 11/12/17 20:59>
[2017-11-12] MEDS ORDERED: NALOXONE HCL INJ/PF 0.4 MG/1 ML SDV ONE (21:39)
[2017-11-12] MEDS ORDERED: EPINEPHRINE INJ 1 MG/10 ML DISP.SYRIN ONE (21:40)
[2017-11-12] MEDS ORDERED: FENTANYL CITRATE INJ/PF 100 MCG/2 ML AMPUL ONE (21:40)
[2017-11-12] MEDS ORDERED: FLUMAZENIL INJ 0.5 MG/5 ML VIAL ONE (21:40)
[2017-11-12] MEDS ORDERED: GLUCAGON,HUMAN RECOMB 1 MG INJ ONE (21:40)
[2017-11-12] MEDS: MIDAZOLAM 2 MG/2 ML INJ ONE ×2 (22:25→22:28)
--- NOTE | 2017-11-12 22:59 | CONSULTATION REPORT E ---
Consultation Report NAME: EVA PATEL : 1975 AGE: 42Y DATE: 11/12/2017 TO: ELADIO BOWEN M.D. FROM: RONALD DAVIDSON M.D. Requesting Physician CONSULTATION REQUESTED BY: Emergency room physician. HISTORY OF THE PRESENT ILLNESS: A 42-year-old patient who came to the emergency room with inability to swallow. This started while she was eating beef at about 4 p.m. She had not been able to swallow after *------*. She has the chronic history of dysphagia for a few years from her diagnosed eosinophilic esophagitis. She has had 2 episodes of foreign body impaction, the last one about a year ago. She had an EGD by Dr. Swan. I saw her in the office about a year ago and started her on Nexium twice a day and fluticasone inhalers which she had to swallow. She claims to be using both medications. PAST MEDICAL HISTORY: 1. Reflux disease. 2. Esophageal stricture. 3. Eosinophilic esophagitis. 4. Fibromyalgia. 5. Bipolar. 6. Asthma. 7. Migraine. PAST SURGICAL HISTORY: 1. Multiple EGDs. 2. Ovarian cyst removal. 3. Some orthopedic surgery. ALLERGIES: 1. MILK. 2. BEE STINGS. SOCIAL HISTORY: Noncontributory. REVIEW OF SYSTEMS: Other than the above is noncontributory. PHYSICAL EXAMINATION: GENERAL: Shows a lady in no distress. She is sitting up spitting up into a bag. VITAL SIGNS: She has a heart rate of 95, blood pressure 105/59. HEENT: No pallor, no jaundice. Oropharynx is normal. NECK: No bruit, no JVD. CHEST: No deformity. LUNGS: Clear. HEART: S1 and S2 normal without murmurs. ABDOMEN: Soft and obese, difficult to feel for masses. Bowel sounds active. NEUROLOGIC: Grossly nonfocal. LABORATORY DATA: Her most recent laboratory test was from 10/22/17 when her hemoglobin was 13, a white count of 14, and platelet of 270. Chem-12 was normal at that time except for a glucose of 127. IMAGING STUDIES: She had a CT of the abdomen and pelvis on 10/23/17 for right-sided abdominal pain and this showed some wall thickening in the transverse colon. ASSESSMENT AND PLAN: Dysphagia with likely foreign body. The need for an urgent EGD including the risk and benefit was explained to the patient. She will likely need dilation over the near future. She will continue with a PPI twice a day. DICTATING PHYSICIAN: ELADIO BOWEN M.D. [id number] PHY#: [id number] ID: [id number] JOB#: [id number] ACCT: [id number] cc:ELADIO BOWEN M.D. >
[2017-11-12 23:25] VITALS: BP 115/74
--- NOTE | 2017-11-12 23:49 | OPERATIVE REPORT E ---
Operative Report NAME: EVA PATEL : 1975 AGE: 42Y DATE OF SURGERY: 11/12/2017 ROOM: PREOPERATIVE DIAGNOSIS: DYSPHAGIA AND INABILITY TO SWALLOW LIQUIDS. POSTOPERATIVE DIAGNOSES: 1. ESOPHAGEAL FOREIGN BODY. 2. GE JUNCTION STRICTURE. 3. ENDOSCOPIC EVIDENCE FOR EOSINOPHILIC ESOPHAGITIS. OPERATION: EGD for foreign body removal. MEDICATION: Versed 4 mg, fentanyl 100 mcg. SURGEON: ELADIO BOWEN M.D. TISSUE REMOVED OR ALTERED: None. PROCEDURE: After informed consent was obtained from the patient, conscious sedation was achieved. The upper endoscope was then inserted into the esophagus and immediately foreign body was identified and it looked like meat. I was able to push the foreign body through the stricture at the GE junction. The 9.9 mm scope passed through the GE junction with some difficulty. There was diffuse furrows and some rings noted in the esophagus. The stomach and the duodenum were examined and normal. There was some erosion at the GE junction precluding dilation. She tolerated the procedure well. PLAN: She will continue with the PPI twice a day and fluticasone inhalers. I will schedule her for an outpatient EGD with dilation of the GE junction. DICTATING PHYSICIAN: ELADIO BOWEN M.D. [id number] Y#: [id number] ID: [id number] JOB#: [id number] ACCT: [id number] cc:ELADIO BOWEN M.D. >
== END 2017-11-12 23:10 | disposition home or self-care (01) ==
LOC: ER 19:47
PROC: 0DC48ZZ Extirpation of Matter from Esophagogastric Junction, Via Natural or Artificial Opening Endoscopic (ICD-10-PCS; principal; 2017-11-12 21:45)
DX: T18.128A Food in esophagus causing other injury, initial encounter (principal); K20.0 Eosinophilic esophagitis; X58.XXXA Exposure to other specified factors, initial encounter; J45.909 Unspecified asthma, uncomplicated; Z79.899 Other long term (current) drug therapy
CPT/HCPCS: 99284; 43247; J2250; J3010; J0171; J1610; J2310; J3490

== ENCOUNTER 2018-09-17 22:08 | Emergency (ER) | payer MEDICAID ==
--- NOTE | 2018-09-17 22:27 | ER Document Report ---
ED Medical Screen (RME) - General Stated Complaint: ABDOMINAL PAIN Time Seen by Provider: 09/17/18 22:25 Primary Care Provider: ANNALISA CHEEMA MD [Primary Care Provider] - Follow up as needed Notes: pt reeports to the ED with c/o epigastric abdominal pain that started today, increases when she drinks water. hx reflex, RUQ ttp I have greeted and performed a rapid initial assessment of this patient. A comprehensive ED assessment and evaluation of the patient, analysis of test results and completion of the medical decision making process will be conducted by additional ED providers. TRAVEL OUTSIDE OF THE [place] IN LAST 30 DAYS: No - Related Data Allergies/Adverse Reactions: milk [Milk] Allergy (Severe, Verified 11/19/16 08:52) Anaphylaxis bee stings Allergy (Uncoded 11/19/16 08:52) Past Medical History - Past Medical History Cardiac Medical History: Denies: Hx Coronary Artery Disease, Hx Heart Attack, Hx Hypertension Pulmonary Medical History: Reports: Hx Asthma Denies: Hx Bronchitis, Hx COPD, Hx Pneumonia Neurological Medical History: Reports: Hx Migraine. Denies: Hx Cerebrovascular Accident, Hx Seizures Renal/ Medical History: Denies: Hx Peritoneal Dialysis GI Medical History: Reports: Hx Gastroesophageal Reflux Disease Musculoskeltal Medical History: Denies Hx Arthritis, Reports Hx Fibromyalgia Psychiatric Medical History: Reports: Hx Bipolar Disorder Past Surgical History: Reports: Hx Gynecologic Surgery - ovarian cyst removed, Hx Orthopedic Surgery - plate and screws in left pinky. Denies: Hx Hysterectomy - Immunizations Hx Diphtheria, Pertussis, Tetanus Vaccination: Yes - <5 years Doctor's Discharge - Discharge Referrals: ANNALISA CHEEMA MD [Primary Care Provider] - Follow up as needed
[2018-09-17 23:12] LABS: ABSOLUTE BASOPHILS # (AUTO) 0.1 10^3/uL (0.0-0.2); ABSOLUTE EOSINOPHILS # (AUTO) 0.6 10^3/uL (0.0-0.6); ABSOLUTE LYMPHOCYTES (AUTO) 2.8 10^3/uL (0.5-4.7); ABSOLUTE MONOCYTES (AUTO) 0.6 10^3/uL (0.1-1.4); ABSOLUTE NEUT (AUTO) 5.5 10^3/uL (1.7-8.2); BASOPHILS % (AUTO) 1.2 % (0-2); EOSINOPHILS % (AUTO) 6.3 % (0-6); HEMATOCRIT 38.4 % (36.0-47.0); HEMOGLOBIN 12.8 g/dL (12.0-15.5); LYMPHOCYTES % (AUTO) 29.2 % (13-45); MEAN CORPUSCULAR HEMOGLOBIN 26.3 pg (27.0-33.4); MEAN CORPUSCULAR HGB CONC 33.4 g/dL (32.0-36.0); MEAN CORPUSCULAR VOLUME 79 fl (80-97); PLATELET COUNT 233 10^3/uL (150-450); RED BLOOD COUNT 4.88 10^6/uL (3.72-5.28); RED CELL DISTRIBUTION WIDTH 14.5 % (11.5-14.0); SEGMENTED NEUTROPHILS % (AUTO) 57.3 % (42-78); TOTAL CELLS COUNTED % (AUTO) 100 %; WHITE BLOOD COUNT 9.6 10^3/uL (4.0-10.5)
[2018-09-17 23:36] LABS: ALANINE AMINOTRANSFERASE 45 U/L (9-52); ALBUMIN 4.1 g/dL (3.5-5.0); ALKALINE PHOSPHATASE 77 U/L (38-126); ANION GAP 7 (5-19); ASPARTATE AMINO TRANSFERASE 34 U/L (14-36); BILIRUBIN,DIRECT 0.1 mg/dL (0.0-0.4); BILIRUBIN,TOTAL 0.4 mg/dL (0.2-1.3); BLOOD UREA NITROGEN 18 mg/dL (7-20); CALCIUM 9.1 mg/dL (8.4-10.2); CARBON DIOXIDE 26 mmol/L (22-30); CHLORIDE 106 mmol/L (98-107); GLUCOSE 106 mg/dL (75-110); LIPASE 64.4 U/L (23-300); POTASSIUM 3.8 mmol/L (3.6-5.0); SODIUM 138.7 mmol/L (137-145); TOTAL PROTEIN 6.7 g/dL (6.3-8.2)
[2018-09-18 03:07] LABS: APPEARANCE,URINE SLIGHTLY-CLOUDY; BILIRUBIN,URINE NEGATIVE (NEGATIVE); COLOR,URINE YELLOW; GLUCOSE, URINE NEGATIVE (NEGATIVE); KETONES,URINE NEGATIVE (NEGATIVE); LEUKOCYTE ESTERASE,URINE TRACE (NEGATIVE); NITRITE,URINE NEGATIVE (NEGATIVE); PROTEIN,URINE NEGATIVE (NEGATIVE)
[2018-09-18] MEDS ORDERED: SCOPOLAMINE HYDROBROMIDE 1.5 MG PATCH.TD72 TD ONE (05:28)
--- NOTE | 2018-09-18 05:33 | ER Document Report ---
ED General - General Chief Complaint: Abdominal Pain Stated Complaint: ABDOMINAL PAIN Time Seen by Provider: 09/17/18 22:25 Primary Care Provider: ANNALISA CHEEMA MD [Primary Care Provider] - Follow up as needed Notes: Patient is a 43-year-old female who presents to the emergency department with a chief complaint of abdominal pain in her epigastric area and in her right upper quadrant. Symptoms started at 3 PM in the afternoon and she describes it as a sharp pain that she had in her side that lasted about how a few minutes and went away for 2 hours, but then reappeared shortly before she presented to the emergency department. She has had some associated nausea, but denies vomiting or diarrhea. Past medical history includes GERD, which she ended up having an endoscopy for and they dilated her esophagus. She does take Prilosec. She also has a history of environmental allergies and takes Zyrtec and Flonase. TRAVEL OUTSIDE OF THE [place] IN LAST 30 DAYS: No - Related Data Allergies/Adverse Reactions: milk [Milk] Allergy (Severe, Verified 11/19/16 08:52) Anaphylaxis bee stings Allergy (Uncoded 11/19/16 08:52) Past Medical History - Social History Smoking Status: Never Smoker Chew tobacco use (# tins/day): No Frequency of alcohol use: None Drug Abuse: None Family History: Reviewed & Not Pertinent Patient has suicidal ideation: No Patient has homicidal ideation: No - Past Medical History Cardiac Medical History: Denies: Hx Coronary Artery Disease, Hx Heart Attack, Hx Hypertension Pulmonary Medical History: Reports: Hx Asthma Denies: Hx Bronchitis, Hx COPD, Hx Pneumonia Neurological Medical History: Reports: Hx Migraine. Denies: Hx Cerebrovascular Accident, Hx Seizures Renal/ Medical History: Denies: Hx Peritoneal Dialysis GI Medical History: Reports: Hx Gastroesophageal Reflux Disease Musculoskeletal Medical History: Denies Hx Arthritis, Reports Hx Fibromyalgia Psychiatric Medical History: Reports: Hx Bipolar Disorder Past Surgical History: Reports: Hx Gynecologic Surgery - ovarian cyst removed, Hx Orthopedic Surgery - plate and screws in left pinky. Denies: Hx Hysterectomy - Immunizations Hx Diphtheria, Pertussis, Tetanus Vaccination: Yes - <5 years Review of Systems - Review of Systems Notes: REVIEW OF SYSTEMS: CONSTITUTIONAL : Denies recent illness. Denies recent unintentional weight loss. Denies fever, chills, or sweats. EENT: Denies eye, ear, throat, or mouth pain, discharge, or symptoms. Denies nasal or sinus congestion. CARDIOVASCULAR: Denies chest pain. RESPIRATORY: Denies shortness of breath, cough, congestion, difficulty breathing, or wheezing. GASTROINTESTINAL: See HPI. GENITOURINARY: Denies difficulty urinating, burning, blood in urine, urgency or frequency. MUSCULOSKELETAL: Denies neck and back pain. Denies joint pain or swelling. SKIN: Denies rash, itchiness, or lesions HEMATOLOGIC : Denies easy bruising or bleeding. LYMPHATIC: Denies swollen, painful, enlarged glands. NEUROLOGICAL: Denies no numbness or tingling denies weakness. Denies headache. Denies altered mental status. Denies alteration in speech. PSYCHIATRIC: Denies stress, anxiety, alteration in sleep patterns, or depression. All other systems reviewed and negative. Physical Exam - Vital signs Vitals: Temp Pulse Resp BP Pulse Ox 98.3 F 86 20 133/73 H 99 09/17/18 22:31 09/17/18 22:31 09/17/18 22:31 09/17/18 22:31 09/17/18 22:31 - Notes Notes: PHYSICAL EXAMINATION: GENERAL: Appears well, healthy, well-nourished, no acute distress. HEAD: Normocephalic, atraumatic. EYES: PERRL, conjunctiva normal, all extraocular movements intact, sclera nonicteric ENT: Moist mucous membranes. NECK: Supple, no noticeable swelling, redness, rash. Normal range of motion. LUNGS: Equal breath sounds bilaterally and clear to auscultation. No wheezes rales or rhonchi. CARDIOVASCULAR: S1-S2, regular rate, regular rhythm. Radial pulses 2+, normal. ABDOMEN: Normoactive bowel sounds. Soft, tender mid epigastric and right upper quadrant. EXTREMITIES: Normal strength and range of motion, no pitting or edema. No cyanosis. NEUROLOGICAL: Moves all extremities upon command. Strength 5/5 in all extremities. PSYCH: Normal mood, normal affect. SKIN: Warm, dry. No rash, lesions, ulcerations noted. Normal skin turgor. Course - Re-evaluation Re-evalutation: 09/18/18 05:34 She does have tenderness to her right upper quadrant. She will be sent for right upper quadrant abdominal ultrasound. Differential diagnosis includes GERD, cholecystitis, cholelithiasis, pancreatitis. 09/18/18 05:35 Her urinalysis is unremarkable. Her lipase is normal. Her chemistries are grossly unremarkable. Her hematology is also normal. 09/18/18 06:46 Right upper quadrant ultrasound is negative for cholelithiasis or cholecystitis. She will be given a GI cocktail to help with her symptoms now that she has a scopolamine patch on. - Vital Signs Vital signs: Temp Pulse Resp BP Pulse Ox 97.9 F 79 20 129/79 H 100 09/18/18 04:57 09/18/18 04:57 09/18/18 04:57 09/18/18 04:57 09/18/18 04:57 - Laboratory Result Diagrams: 09/17/18 23:00 09/17/18 23:00 Laboratory results interpreted by me: 09/17/18 09/18/18 23:00 02:50 MCV 79 L MCH 26.3 L RDW 14.5 H Eosinophils % 6.3 H Urine Urobilinogen 4.0 H Ur Leukocyte Esterase TRACE H Discharge - Discharge Clinical Impression: Abdominal pain Qualifiers: Abdominal location: epigastric Qualified Code(s): R10.13 - Epigastric pain Condition: Stable Additional Instructions: You were seen today in the emergency department for abdominal pain. Your ultrasound is normal. You have been given Carafate, medication to help coat your stomach. Take 1 tablet 30 minutes prior to eating. Follow-up with your primary care provider in regards to this visit. You can leave use scopolamine patch on for the next 3 days. If you develop worsening abdominal pain, fever greater than 100.4 F, worsening symptoms, or any symptoms that are worrisome to you, please return to the emergency department. Prescriptions: Sucralfate [Carafate 1 gm Tablet] 1 gm PO ACHS #120 tablet Referrals: ELADIO BOWEN MD [ACTIVE STAFF] - Follow up in 3-5 days
[2018-09-18] MEDS ORDERED: SCOPOLAMINE HYDROBROMIDE 1.5 MG PATCH.TD72 ONE (05:46)
--- NOTE | 2018-09-18 06:27 | RADIOLOGY REPORT (SQ) ---
CLINICAL HISTORY: RUQ abdominal pain COMPARISON: None. TECHNIQUE: US ABDOMEN LIMITED on 09/18/2018 5:30 AM CDT FINDINGS: Liver is fatty in echotexture. Portal vein is patent. Gallbladder is normally distended without wall thickening or pericholecystic fluid. Abdominal aorta is not aneurysmal. Common bile duct measures 2.2 mm. Right kidney measures 10.5 cm without hydronephrosis. IMPRESSION: Unremarkable appearance of the gallbladder.
[2018-09-18] MEDS ORDERED: METOCLOPRAMIDE HCL ORAL SOLN 10 MG/10 ML UDCUP PO ONE (06:44)
[2018-09-18] MEDS ORDERED: MAG HYDROX/AL HYDROX/SIMETH SUSP 30 ML UDCUP PO ONE (06:44)
[2018-09-18] MEDS ORDERED: LIDOCAINE 2% VISCOUS SOLN 20 ML UDCUP PO ONE (06:44)
[2018-09-18 07:54] VITALS: BP 128/83
== END 2018-09-18 07:45 | disposition home or self-care (01) ==
LOC: ER 22:08
DX: K21.9 Gastro-esophageal reflux disease without esophagitis (principal); R10.13 Epigastric pain; R10.11 Right upper quadrant pain; R10.811 Right upper quadrant abdominal tenderness; R11.0 Nausea; J45.909 Unspecified asthma, uncomplicated; T78.40XA Allergy, unspecified, initial encounter; X58.XXXA Exposure to other specified factors, initial encounter; Z79.899 Other long term (current) drug therapy; Z87.892 Personal history of anaphylaxis; Z91.011 Allergy to milk products; Z91.030 Bee allergy status
CPT/HCPCS: 99284; 36415; 83690; 85025; 80053; 81001; 76705; J3490 ×4

== ENCOUNTER 2019-08-10 15:18 | Emergency (ER) | payer SELFPAY ==
[2019-08-10] MEDS ORDERED: KETOROLAC TROMETHAMINE 60 MG/2 ML SDV IM ONE (16:32)
[2019-08-10] MEDS ORDERED: BENZONATATE 100 MG CAPSULE PO ONE (16:33)
[2019-08-10] MEDS ORDERED: PREDNISONE 20 MG TABLET PO ONE (16:35)
[2019-08-10] MEDS ORDERED: IPRATROPIUM/ALBUTEROL 0.5-2.5 MG/3 ML AMPUL NEB ONE ×2 (16:35→19:32)
--- NOTE | 2019-08-10 16:35 | ER Document Report ---
ED Medical Screen (RME) - General Chief Complaint: Congestion Stated Complaint: WEAKNESS,COUGH,CONGESTION Time Seen by Provider: 08/10/19 16:31 Primary Care Provider: ANNALISA CHEEMA MD [Primary Care Provider] - Follow up as needed Notes: 43 y/o female with history of asthma presents for nasal congestion, coughing, and malaise for 1 month. States started to feel better and then started to get worse the past week. States using inhaler with little relief. Mild rhonchi heard throughout lung lal. Nontoxic, well appearing. I have greeted and performed a rapid initial assessment of this patient. A comprehensive ED assessment and evaluation of the patient, analysis of test results and completion of the medical decision making process with be conducted by additional ED providers. TRAVEL OUTSIDE OF THE [place] IN LAST 30 DAYS: No - Related Data Allergies/Adverse Reactions: milk [Milk] Allergy (Severe, Verified 11/19/16 08:52) Anaphylaxis bee stings Allergy (Uncoded 11/19/16 08:52) Past Medical History - Past Medical History Cardiac Medical History: Denies: Hx Coronary Artery Disease, Hx Heart Attack, Hx Hypertension Pulmonary Medical History: Reports: Hx Asthma Denies: Hx Bronchitis, Hx COPD, Hx Pneumonia Neurological Medical History: Reports: Hx Migraine. Denies: Hx Cerebrovascular Accident, Hx Seizures Renal/ Medical History: Denies: Hx Peritoneal Dialysis GI Medical History: Reports: Hx Gastroesophageal Reflux Disease Musculoskeltal Medical History: Denies Hx Arthritis, Reports Hx Fibromyalgia Psychiatric Medical History: Reports: Hx Bipolar Disorder Past Surgical History: Reports: Hx Gynecologic Surgery - ovarian cyst removed, Hx Orthopedic Surgery - plate and screws in left pinky. Denies: Hx Hysterectomy - Immunizations Hx Diphtheria, Pertussis, Tetanus Vaccination: Yes - <5 years Physical Exam - Vital signs Vitals: Temp Pulse Resp BP Pulse Ox 98.6 F 83 16 134/87 H 94 08/10/19 15:45 08/10/19 15:45 08/10/19 15:45 08/10/19 15:45 08/10/19 15:45 Course - Vital Signs Vital signs: Temp Pulse Resp BP Pulse Ox 98.6 F 83 16 134/87 H 94 08/10/19 15:45 08/10/19 15:45 08/10/19 15:45 08/10/19 15:45 08/10/19 15:45 Doctor's Discharge - Discharge Referrals: ANNALISA CHEEMA MD [Primary Care Provider] - Follow up as needed
--- NOTE | 2019-08-10 17:12 | RADIOLOGY REPORT (SQ) ---
EXAM DESCRIPTION: CHEST 2 VIEWS COMPLETED DATE/TIME: 08/10/2019 4:01 pm REASON FOR STUDY: coughing, hx asthma COMPARISON: None. EXAM PARAMETERS: NUMBER OF VIEWS: two views TECHNIQUE: Digital Frontal and Lateral radiographic views of the chest acquired. RADIATION DOSE: NA LIMITATIONS: none FINDINGS: LUNGS AND PLEURA: No opacities, masses or pneumothorax. No pleural effusion. MEDIASTINUM AND HILAR STRUCTURES: No masses or contour abnormalities. HEART AND VASCULAR STRUCTURES: Heart normal size. No evidence for failure. BONES: No acute findings. HARDWARE: None in the chest. OTHER: No other significant finding. IMPRESSION: NO ACUTE RADIOGRAPHIC FINDING IN THE CHEST. TECHNICAL DOCUMENTATION: JOB ID: [id number] [employer]- All Rights Reserved Reading location - IP/workstation name: [email or web address]
[2019-08-10 17:45] LABS: A TYPE INFLUENZA AG NEGATIVE (NEGATIVE); B INFLUENZA AG NEGATIVE (NEGATIVE)
[2019-08-10] MEDS ORDERED: ALBUTEROL SULFATE HFA (90 MCG/PUFF) 8 GM MDI (1 MDI/ER DISP) IH PRN (19:32)
--- NOTE | 2019-08-10 19:37 | ER Document Report ---
ED Respiratory Problem - General Chief Complaint: Congestion Stated Complaint: WEAKNESS,COUGH,CONGESTION Time Seen by Provider: 08/10/19 16:31 Primary Care Provider: ANNALISA CHEEMA MD [Primary Care Provider] - Follow up as needed Notes: Patient is a 43-year-old female who presents emergency department with a chief complaint of cough. Patient reports she has a history of asthma and has been battling intermittent cough for about 1 month. Patient reports she was starting to feel better last week than the cough started to become more persistent again. Patient reports intermittent fevers of 101 at home. Patient reports right rib pain that is worse with coughing, deep breathing. Patient reports nasal congestion that is green. Patient denies sinus pressure or sinus pain. Patient reports she does use her albuterol inhaler with minimal relief that she is also running out of this. Patient reports that she has had nausea and when she has a coughing fit she will vomit. TRAVEL OUTSIDE OF THE [place] IN LAST 30 DAYS: No - Related Data Allergies/Adverse Reactions: milk [Milk] Allergy (Severe, Verified 11/19/16 08:52) Anaphylaxis bee stings Allergy (Uncoded 11/19/16 08:52) Home Medications: albuterol Past Medical History - General Information source: Patient - Social History Smoking Status: Never Smoker Frequency of alcohol use: None Drug Abuse: None Lives with: Family Family History: Reviewed & Not Pertinent Patient has suicidal ideation: No Patient has homicidal ideation: No - Past Medical History Cardiac Medical History: Reports: None Denies: Hx Coronary Artery Disease, Hx Heart Attack, Hx Hypertension Pulmonary Medical History: Reports: Hx Asthma Denies: Hx Bronchitis, Hx COPD, Hx Pneumonia EENT Medical History: Reports: None Neurological Medical History: Reports: Hx Migraine. Denies: Hx Cerebrovascular Accident, Hx Seizures Endocrine Medical History: Reports: None Renal/ Medical History: Reports: None. Denies: Hx Peritoneal Dialysis Malignancy Medical History: Reports: None GI Medical History: Reports: Hx Gastroesophageal Reflux Disease Musculoskeletal Medical History: Denies Hx Arthritis, Reports Hx Fibromyalgia Skin Medical History: Reports None Psychiatric Medical History: Reports: Hx Bipolar Disorder Traumatic Medical History: Reports: None Infectious Medical History: Reports: None Past Surgical History: Reports: Hx Gynecologic Surgery - ovarian cyst removed, Hx Orthopedic Surgery - plate and screws in left pinky. Denies: Hx Hysterectomy - Immunizations Hx Diphtheria, Pertussis, Tetanus Vaccination: Yes - <5 years Review of Systems - Review of Systems Constitutional: See HPI EENT: See HPI Cardiovascular: No symptoms reported Respiratory: See HPI Gastrointestinal: See HPI Genitourinary: No symptoms reported Female Genitourinary: No symptoms reported Musculoskeletal: No symptoms reported Skin: No symptoms reported Hematologic/Lymphatic: No symptoms reported Neurological/Psychological: No symptoms reported Physical Exam - Vital signs Vitals: Temp Pulse Resp BP Pulse Ox 98.6 F 83 16 134/87 H 94 08/10/19 15:45 08/10/19 15:45 08/10/19 15:45 08/10/19 15:45 08/10/19 15:45 - Notes Notes: GENERAL: Well-appearing, well-nourished and in no acute distress. HEAD: Atraumatic, normocephalic. No sinus tenderness with palpation. EYES: Pupils equal round and reactive to light, extraocular movements intact, sclera anicteric, conjunctiva are normal. ENT: Nares patent, oropharynx clear without exudates. Moist mucous membranes. NECK: Normal range of motion, supple without lymphadenopathy or JVD. LUNGS: Patient has scattered rhonchi noted to the left upper and mid lung lal, no wheezing. Right chest wall and right ribs tender with palpation. HEART: Regular rate and rhythm without murmurs, rubs or gallops. ABDOMEN: Soft, nontender, normoactive bowel sounds. No guarding, no rebound. No masses appreciated. BACK: No cervical, thoracic, lumbar midline tenderness. No saddle anesthesia, normal distal neurovascular exam. GENITOURINARY: Deferred. EXTREMITIES: Normal range of motion, no pitting or edema. No clubbing or cyanosis. NEUROLOGICAL: Cranial nerves II through XII grossly intact. Normal speech, normal gait. PSYCH: Normal mood, normal affect. SKIN: Warm, Dry, normal turgor, no rashes or lesions noted. Course - Re-evaluation Re-evalutation: 08/10/19 19:49 Patient reports feeling better after receiving first DuoNeb. Patient continues to have slight rhonchi noted in the left upper and mid lobe. Will give another DuoNeb. Will prescribe the patient Tessalon Perles and other medications for acute bronchitis. Symptoms have persistent for about 1 month. Patient no acute distress. 08/10/19 19:49 Patient's influenza, strep and chest x-ray were negative for any acute abnorm ality. - Vital Signs Vital signs: Temp Pulse Resp BP Pulse Ox 98.6 F 83 16 134/87 H 94 08/10/19 15:45 08/10/19 15:45 08/10/19 15:45 08/10/19 15:45 08/10/19 15:45 - Laboratory Laboratory results interpreted by me: Laboratory 08/10/19 08/10/19 17:00 17:00 Influenza A (Rapid) NEGATIVE Influenza B (Rapid) NEGATIVE Group A Strep Rapid NEGATIVE - Diagnostic Test Radiology reviewed: Reports reviewed Radiology results interpreted by me: 08/10/19 19:49 Chest X-Ray 08/10/19 16:32 IMPRESSION: NO ACUTE RADIOGRAPHIC FINDING IN THE CHEST. Discharge - Discharge Clinical Impression: Bronchitis, Cough Asthma Qualifiers: Asthma severity: mild Asthma persistence: unspecified Asthma complication type: with acute exacerbation Qualified Code(s): J45.901 - Unspecified asthma with (acute) exacerbation Condition: Stable Disposition: HOME, SELF-CARE Additional Instructions: *Today you have presented to the emergency department with cough and congestion. You have been diagnosed with upper respiratory infection. Your chest x-ray was negative for pneumonia. Your influenza and strep test were negative. I am placing you on oral steroids, Tessalon Perles for your cough and albuterol nebulizer and inhaler. Take these as needed. Take Tylenol or ibuprofen as needed for your pain or fever. Chest Wall Pain Your chest pain has been diagnosed as coming from the chest wall. This is often caused by straining the muscles or joints in the chest during physical activity, direct trauma, coughing, or vigorous vomiting. Persons with arthritis are especially prone to this type of pain, due to inflammation of the cartilage joints near the breast bone. Occasionally, no cause can be found. Rest from strenuous physical activity. This kind of chest pain is usually made worse by movement of the chest. Depending on the symptoms, we may prescribe medicine for pain, muscle relaxation, and antiinflammatory effects. If the pain is new, and seems to be due to muscle strain, cold packs can help. Otherwise, apply gentle warmth to the painful area for 15 minutes every hour or two. You should contact the doctor immediately if things change. Further evaluation is needed if you develop a fever or cough, if the nature of the pain changes, or if you become short of breath. Upper Respiratory Illness You have a viral infection of the respiratory passages -- a "cold." This common infection causes nasal congestion, drainage, and often sore throat and cough. It is caused by a virus and is highly contagious. The disease usually lasts a week or more, though the worst symptoms are usually over in 3 or 4 days. There is no "cure" for the viral infection -- it must run its course. If there is a complication, such as bacterial infection in the nose, sinuses, middle ear, or bronchial tubes, antibiotics may be required, but antibiotics won't affect the virus. If you smoke, you should STOP!! Drink plenty of fluids. A humidifier may help. An expectorant medication or decongestant may make you more comfortable. Use acetaminophen or ibuprofen for fever or aches. See the doctor if fever persists over two or three days, if there is any significant worsening of your symptoms, or if you simply fail to improve as expected. Prescriptions: Benzonatate [Tessalon Perles 100 mg Capsule] 100 mg PO Q8HP PRN #40 capsule PRN Reason: Prednisone [Deltasone 10 mg Tablet] 10 mg PO ASDIR PRN #21 tablet PRN Reason: Nebulizer and Compressor [Home Nebulizer Plus Sidestream] 1 each MC Q4 PRN #1 each PRN Reason: Albuterol Sulfate [Ventolin 0.083% Neb 2.5 mg/3 mL Ampul] 2.5 mg NEB Q4 PRN #21 vial.neb PRN Reason: Azithromycin [Zithromax 250 mg Tablet] 250 mg PO ASDIR PRN #6 tablet PRN Reason: Referrals: ANNALISA CHEEMA MD [Primary Care Provider] - Follow up as needed
[2019-08-10 20:06] VITALS: BP 127/81
== END 2019-08-10 20:05 | disposition home or self-care (01) ==
LOC: ER 15:18
DX: J20.9 Acute bronchitis, unspecified (principal); J45.901 Unspecified asthma with (acute) exacerbation; R05 Cough; R07.81 Pleurodynia; R09.81 Nasal congestion; R11.2 Nausea with vomiting, unspecified; Z79.899 Other long term (current) drug therapy; Z87.892 Personal history of anaphylaxis; Z91.011 Allergy to milk products; Z91.030 Bee allergy status
CPT/HCPCS: 87070; 87880; 87804; 71046; J1885; J7512; J3490; J7620; 94640; 96372; 99283

== ENCOUNTER 2020-05-28 12:46 | Emergency (ER) | payer SELFPAY ==
[2020-05-28 13:00] VITALS: BP 128/70
--- NOTE | 2020-05-28 13:18 | ER Document Report ---
ED Hand/Wrist Injury - General Chief Complaint: Finger Injury Stated Complaint: FINGER INJURY Time Seen by Provider: 05/28/20 13:09 Primary Care Provider: ANNALISA CHEEMA MD [Primary Care Provider] - Follow up as needed KRYSTA WARD DO [ACTIVE STAFF] - Follow up in 3-5 days TRAVEL OUTSIDE OF THE [place] IN LAST 30 DAYS: No - HPI Notes: Patient is a 44-year-old female with no medical history who presents with left hand injury that occurred about 3 weeks ago. Patient states she tried to stop her friend's dog who was on a wire lead and went to grab the lead and became all wrapped up in it while the dog was pulling. She sustained injuries to both her hands but her right hand has improved significantly and she has full range of motion with no swelling and minimal pain. However, the middle finger of her left hand remains swollen tender and she is unable to fully bend it. She has not been seen for these injuries. - Related Data Allergies/Adverse Reactions: milk [Milk] Allergy (Severe, Verified 05/28/20 13:02) Anaphylaxis bee stings Allergy (Uncoded 05/28/20 13:02) Past Medical History - General Information source: Patient - Social History Smoking Status: Never Smoker Chew tobacco use (# tins/day): No Frequency of alcohol use: Social Drug Abuse: None Family History: Reviewed & Not Pertinent - Past Medical History Cardiac Medical History: Denies: Hx Coronary Artery Disease, Hx Heart Attack, Hx Hypertension Pulmonary Medical History: Reports: Hx Asthma Denies: Hx Bronchitis, Hx COPD, Hx Pneumonia Neurological Medical History: Reports: Hx Migraine. Denies: Hx Cerebrovascular Accident, Hx Seizures Renal/ Medical History: Denies: Hx Peritoneal Dialysis GI Medical History: Reports: Hx Gastroesophageal Reflux Disease Musculoskeletal Medical History: Denies Hx Arthritis, Reports Hx Fibromyalgia Psychiatric Medical History: Reports: Hx Bipolar Disorder Past Surgical History: Reports: Hx Gynecologic Surgery - ovarian cyst removed, Hx Orthopedic Surgery - plate and screws in left pinky. Denies: Hx Hysterectomy - Immunizations Hx Diphtheria, Pertussis, Tetanus Vaccination: Yes - <5 years Review of Systems - Review of Systems Constitutional: No symptoms reported EENT: No symptoms reported Cardiovascular: No symptoms reported Respiratory: No symptoms reported Gastrointestinal: No symptoms reported Genitourinary: No symptoms reported Female Genitourinary: No symptoms reported Musculoskeletal: See HPI Skin: No symptoms reported Hematologic/Lymphatic: No symptoms reported Neurological/Psychological: No symptoms reported Physical Exam - Vital signs Vitals: Temp Pulse Resp BP Pulse Ox 98.5 F 98 16 128/70 H 100 05/28/20 13:00 05/28/20 13:00 05/28/20 13:00 05/28/20 13:00 05/28/20 13:00 - Notes Notes: PHYSICAL EXAMINATION: GENERAL: Well-appearing, well-nourished and in no acute distress. HEAD: Atraumatic, normocephalic. EYES: sclera anicteric, conjunctiva are normal. ENT: Moist mucous membranes. NECK: Normal range of motion LUNGS: Normal work of breathing HEART: 2+ radial pulses bilaterally EXTREMITIES: Swelling and ecchymosis to the PIP joint of the left middle finger with limited range of motion secondary to pain but flexion and extension intact. Full range of motion to the right hand. 2+ radial pulse bilaterally with good cap refill to both hands. Sensation intact. No pitting or edema. No cyanosis. NEUROLOGICAL: No focal neurological deficits. Moves all extremities spontaneously and on command. PSYCH: Normal mood, normal affect. SKIN: Warm, Dry, normal turgor, no rashes or lesions noted. Course - Re-evaluation Re-evalutation: Patient is a 44-year-old female with no medical history presents with a left hand injury that occurred 3 weeks ago. Vital signs are normal and stable. On exam, swelling and ecchymosis to the PIP joint on the left middle finger with limited range of motion secondary to pain. Left hand x-ray is negative with no fractures. Patient's finger splinted and recommended she follow up with ortho for further evaluation and possible MRI. Return precautions and follow-up instructions given. Patient understands and is in agreement with the plan. Patient will be discharged home. - Vital Signs Vital signs: Temp Pulse Resp BP Pulse Ox 98.5 F 98 16 128/70 H 100 05/28/20 13:00 05/28/20 13:00 05/28/20 13:00 05/28/20 13:00 05/28/20 13:00 Procedures - Immobilization Left Proximal Finger 3rd digit Pre-Proc Neuro Vasc Exam: Normal Immobilizer type: Finger splint (Static) Post-Proc Neuro Vasc Exam: Normal Discharge - Discharge Clinical Impression: Finger pain, left Injury of left hand Qualifiers: Encounter type: initial encounter Qualified Code(s): S69.92XA - Unspecified injury of left wrist, hand and finger(s), initial encounter Condition: Stable Disposition: HOME, SELF-CARE Additional Instructions: Sprained Finger You have a finger sprain. A sprain is an over-stretching or tearing of the ligaments which guard the joints. The injury may require a few weeks of protection while it heals. The usual treatment for a finger sprain is a splint, ice packs, and elevation. As pain and swelling decrease, cautious use of the finger is allowed. Often the injured finger is taped to an uninjured finger to provide a "moving splint" during the later healing. Complete recovery takes about three or four weeks. Your physician has assessed the seriousness of the ligament injury in your finger, and has outlined the initial treatment plan. Understand that this treatment may change, depending on how your finger progresses. If further exams were recommended, it is important that you follow up as instructed. Call the doctor at any time if there is severe pain, increasing swelling, or numbness in the finger. Referrals: ANNALISA CHEEMA MD [Primary Care Provider] - Follow up as needed KRYSTA WARD DO [ACTIVE STAFF] - Follow up in 3-5 days
--- NOTE | 2020-05-28 14:00 | RADIOLOGY REPORT (SQ) ---
EXAM DESCRIPTION: HAND LEFT 3 VIEWS IMAGES COMPLETED DATE/TIME: 05/28/2020 1:42 pm REASON FOR STUDY: left hand injury COMPARISON: None. EXAM PARAMETERS: NUMBER OF VIEWS: Three views. TECHNIQUE: AP, lateral and oblique radiographic images acquired of the left hand. LIMITATIONS: None. FINDINGS: MINERALIZATION: Normal. BONES: No acute fracture or dislocation. No worrisome bone lesions. JOINTS: No effusion. SOFT TISSUES: No significant soft tissue swelling. No radiopaque foreign body. OTHER: No other significant finding. IMPRESSION: NO FRACTURE. TECHNICAL DOCUMENTATION: JOB ID: [id number] [id number] 2010 [employer]- All Rights Reserved Reading location - IP/workstation name: [email or web address]
== END 2020-05-28 16:01 | disposition home or self-care (01) ==
LOC: ER 12:46
DX: S60.032A Contusion of left middle finger without damage to nail, initial encounter (principal); W23.0XXA Caught, crushed, jammed, or pinched between moving objects, initial encounter; Y93.89 Activity, other specified; Z87.892 Personal history of anaphylaxis; Z91.011 Allergy to milk products; Z91.030 Bee allergy status; J45.909 Unspecified asthma, uncomplicated
CPT/HCPCS: 99283